=== PATIENT | female | born 1950 | race Caucasian/White ===

== ENCOUNTER 2022-04-13 06:41 | Observation (INO) ==
--- NOTE | 2022-02-27 09:20 | PAT Medication Instructions ---
Medication Instructions Date of Service February 27, 2022 Home Medications Lactobacillus rhamnosus GG 10 billion cell capsule (Culturelle) 1 cap PO DAILY aspirin 81 mg chewable tablet (Caitlin Chewable Low Dose Aspirin) 81 mg PO QAM atorvastatin 10 mg tablet 10 mg PO QDD calcium carbonate 600 mg-vitamin D3 12.5 mcg (500 unit) capsule (Calcium 600 with Vitamin D3) 1 cap PO BID cetirizine 10 mg capsule (Zyrtec) 10 mg PO HS colestipol 1 gram tablet 1 g PO UNKNOWN glimepiride 2 mg tablet 2 mg PO QAM guaifenesin 600 mg tablet, extended release 12 hr (Mucinex) 600 mg PO BID hydrochlorothiazide 25 mg tablet 25 mg PO QAM melatonin 5 mg capsule 5 mg PO HS PRN alendronate 70 mg tablet (Fosamax) 70 mg PO WK turmeric 400 mg capsule 500 mg PO QAM Continue as directed atorvastatin 10 mg tablet 10 mg PO QDD alendronate 70 mg tablet (Fosamax) 70 mg PO WK (not day of surgery) STOP taking 2 weeks before surgery turmeric 400 mg capsule 500 mg PO QAM STOP taking 48 hours before surgery colestipol 1 gram tablet 1 g PO UNKNOWN DO NOT take the morning of surgery Lactobacillus rhamnosus GG 10 billion cell capsule (Culturelle) 1 cap PO DAILY calcium carbonate 600 mg-vitamin D3 12.5 mcg (500 unit) capsule (Calcium 600 with Vitamin D3) 1 cap PO BID glimepiride 2 mg tablet 2 mg PO QAM guaifenesin 600 mg tablet, extended release 12 hr (Mucinex) 600 mg PO BID hydrochlorothiazide 25 mg tablet 25 mg PO QAM Take morning of surgery With a small sip of water, OTHERWISE NOTHING TO EAT OR DRINK AFTER MIDNIGHT: aspirin 81 mg chewable tablet (Caitlin Chewable Low Dose Aspirin) 81 mg PO QAM (unless directed otherwise by surgeon) Take evening before surgery calcium carbonate 600 mg-vitamin D3 12.5 mcg (500 unit) capsule (Calcium 600 with Vitamin D3) 1 cap PO BID cetirizine 10 mg capsule (Zyrtec) 10 mg PO HS guaifenesin 600 mg tablet, extended release 12 hr (Mucinex) 600 mg PO BID melatonin 5 mg capsule 5 mg PO HS PRN(if needed) Other Notes If you have any questions please call us at [phone] or [phone] or [phone] or [phone]
--- NOTE | 2022-03-07 10:26 | Anesthesiology Consultation ---
Date of Service March 07, 2022 Assessment & Plan (1) Encounter for pre-operative examination: - will attempt to obtain any spine available imaging from [facility] - check BSG am DOS. - Outpatient joint assessment: Patient is currently scheduled for inpatient pathway. If re-evaluated pending system levels during current pandemic/surgeon requests outpatient pathway, patient is acceptable candidate for outpatient joint program from anesthesia standpoint pending surgeon's office assessment of pt motivation/support/completion of same day joint program preop requirements. Chart Review Chart Review: Pending: Refer to Additional Notes / Consult section and Patient seen in Pre Admission Testing History Surgery Operation Date: 04/13/22 07:00 Proposed Procedures p Right Total Knee Arthroplasty - Miguel Bah DO Height/Weight Height: 5 ft 3 in Weight: 76.2 kg Allergies Allergy/AdvReac Type Severity Reaction Status Date / Time No Known Allergies Allergy Verified 02/21/22 13:40 Medications Home Medications Medication Instructions Recorded Confirmed Last Taken Lactobacillus rhamnosus GG 10 1 cap PO DAILY 08/01/21 02/21/22 Unknown billion cell capsule (Culturelle) aspirin 81 mg chewable tablet 81 mg PO QAM 08/01/21 02/21/22 Unknown (Caitlin Chewable Low Dose Aspirin) atorvastatin 10 mg tablet 10 mg PO QDD 08/01/21 02/21/22 Unknown calcium carbonate 600 mg-vitamin 1 cap PO BID 08/01/21 02/21/22 Unknown D3 12.5 mcg (500 unit) capsule (Calcium 600 with Vitamin D3) cetirizine 10 mg capsule (Zyrtec) 10 mg PO HS 08/01/21 02/21/22 Unknown colestipol 1 gram tablet 1 g PO UNKNOWN 08/01/21 02/21/22 Unknown glimepiride 2 mg tablet 2 mg PO QAM 08/01/21 02/21/22 Unknown guaifenesin 600 mg tablet, 600 mg PO BID 08/01/21 02/21/22 Unknown extended release 12 hr (Mucinex) hydrochlorothiazide 25 mg tablet 25 mg PO QAM 08/01/21 02/21/22 Unknown melatonin 5 mg capsule 5 mg PO HS PRN Sleep 08/01/21 02/21/22 Unknown alendronate 70 mg tablet (Fosamax) 70 mg PO WK 02/21/22 02/21/22 Unknown turmeric 400 mg capsule 500 mg PO QAM 02/21/22 02/21/22 Unknown Past Medical History Medical History (Updated 03/07/22 @ 10:29 by Cassandra Suarez PA-C) Age related osteoporosis COVID-19 + TEST 02/20/22, [facility] Cyst ON SPINE/TOLD NOTHING TO WORRY ABOUT - NO NEED TO REGULARLY MONITOR UNLESS IT PRESENTS A PROBLEM NO CURRENT PROBLEM WITH Diabetes NIDDM Fatty liver WEIGHT LOSS SINCE DX YRS AGO High cholesterol History of anesthesia reaction awareness during colonoscopies History of colon polyps BENIGN History of skin cancer legs, s/p excision Hypertension controlled, stable per pt Lymphocytic colitis MICROSCOPIC NO CURRENT FLARE UP - BUDESONIDE USE PRN IN THE HX/ NO ACTIVE RX FOR CURRENT Patient denies h/o stroke, seizures, heart attack, heart failure, blood clots or blood transfusions. Exercise / Class Metabolic Activity II 4-5 Yardwork/Stairs/Walk up hill (denies CP or SOB with 1 FOS) Past Family History Family History Mother Family history of blood clots Father Family history of lung cancer Family history of heart attack Brother Family history of heart attack Other Family history of colon cancer in father Heart disease Stroke Past Surgical History Surgical History (Updated 03/07/22 @ 10:30 by Cassandra Suarez PA-C) History of colonoscopy History of endoscopy QUESTIONABLE/PT NOT SURE History of lumpectomy of right breast benign Hx of appendectomy Past Anesthesia History No Family Hx of Anesthesia Complications and Other (awareness during colonoscopies) History of PONV No Hx of PONV and No Hx of Motion Sickness Social History Smoking Status: Former smoker tobacco type: cigarettes Do You Dip or Chew Tobacco: No Smoking End Date: 50 + YR AGO Hx Alcohol Use: No Hx Substance Use: No substance use type: does not use Review of Systems Snoring, denies witnessed apneas. Patient denies chest pain, shortness of breath, dyspnea on exertion, reflux, fever, chills, cough, wheezing, or palpitations. Physical Exam Vital Signs Vitals BP 119/80 P 77 SP02 98% on RA RESP 18 Physical Full cervical extension range of motion without pain TMD 3.5 finger breadths Mallampati Score 1 Dentition: intact, one implant-right pt unsure of location, several caps/crowns; denies chipped, loose teeth or bridge Lungs: normal respiratory effort. Clear throughout to auscultation, no adventitious breath sounds Cardiac: regular rate and rhythm, no murmurs noted Carotid arteries: negative bruit bilat Lab Results Anesthesia Preop Results Results Anesthesia Widget: WBC 6.16 K/ul (4.8-10.8) 03/07/22 Hgb 13.1 g/dl (12.0-16.0) 03/07/22 Hct 38.7 % (34.1-44.9) 03/07/22 Plt 264 K/uL (130-400) 03/07/22 Na 139 mmol/L (136-145) 03/07/22 K 3.7 mmol/L (3.5-5.1) 03/07/22 Cl 104 mmol/L (98-107) 03/07/22 CO2 29 mmol/L (21-32) 03/07/22 BUN 9 mg/dl (6-23) 03/07/22 Creat 0.54 mg/dl (0.6-1.2) L 03/07/22 Glucose Level 113 mg/dl (70-99(Fasting)) H 03/07/22 PT 10.6 Seconds (9.0-12.0) 03/07/22 PTT 42.7 Seconds (21.0-31.0) H 03/07/22 INR 1.0 (0.9-1.1) 03/07/22 HA1c 6.9 % (4.5-5.6) H 03/07/22 Blood Type A Positive 03/07/22 Antibody Screen NEGATIVE 03/07/22 Testing Electrocardiogram Date: 03/07/22 NSR, rate 75 bpm Chest X-Ray Date: 03/07/22 Cardiomediastinal and hilar silhouettes are within normal limits. Mild hyperinflation. No pneumothorax, pleural effusion, airspace consolidation or overt pulmonary edema. Bones of the chest appear grossly intact. There is mild convex left curvature of the lower thoracic spine. IMPRESSION: No acute process. COVID-19 Risk Screen Screening Information COVID-19 Screen Date: 03/07/22 Exposure 21 Days Family/Household +COVID Last 21 Days: No Exposure 10 Days Any COVID Exposure Last 10 Days: No Symptoms Last 10 Days Experienced COVID Sx Last 10 Days: No + COVID 0-90 Days COVID + in Last 0-90 Days: Yes + COVID Test 0-10 Day: No + COVID Test 11-90 Day: Yes
--- NOTE | 2022-04-12 06:53 | History & Physical Report ---
Date of Service April 12, 2022 Assessment & Plan (1) Osteoarthritis of right knee: We will proceed with a right total knee arthroplasty. Postoperatively she will be started on aspirin for DVT prophylaxis and kept overnight for postoperative medical management. She plans to use energy physical therapy upon discharge. History of Present Illness Chief Complaint: Osteoarthritis of the right knee. Primary Care Provider: Lilly Gage PA-C Kerri is a pleasant 71-year-old female who has been dealing with chronic osteoarthritis of the right knee. I have given her multiple injections. The injections did help some. Unfortunately, she is really struggling with her knee. She is having trouble doing exercises. She has trouble walking long distances or going up and downstairs. After failing conservative treatment, she has elected to proceed with a right total knee arthroplasty. Allergies Allergy/AdvReac Type Severity Reaction Status Date / Time No Known Allergies Allergy Verified 02/21/22 13:40 Home Medications Medication Instructions Recorded Confirmed Type Lactobacillus rhamnosus GG 10 1 cap PO DAILY 08/01/21 02/21/22 History billion cell capsule (Culturelle) aspirin 81 mg chewable tablet 81 mg PO QAM 08/01/21 02/21/22 History (Caitlin Chewable Low Dose Aspirin) atorvastatin 10 mg tablet 10 mg PO QDD 08/01/21 02/21/22 History calcium carbonate 600 mg-vitamin 1 cap PO BID 08/01/21 02/21/22 History D3 12.5 mcg (500 unit) capsule (Calcium 600 with Vitamin D3) cetirizine 10 mg capsule (Zyrtec) 10 mg PO HS 08/01/21 02/21/22 History colestipol 1 gram tablet 1 g PO UNKNOWN 08/01/21 02/21/22 History glimepiride 2 mg tablet 2 mg PO QAM 08/01/21 02/21/22 History guaifenesin 600 mg tablet, 600 mg PO BID 08/01/21 02/21/22 History extended release 12 hr (Mucinex) hydrochlorothiazide 25 mg tablet 25 mg PO QAM 08/01/21 02/21/22 History melatonin 5 mg capsule 5 mg PO HS PRN Sleep 08/01/21 02/21/22 History alendronate 70 mg tablet (Fosamax) 70 mg PO WK 02/21/22 02/21/22 History turmeric 400 mg capsule 500 mg PO QAM 02/21/22 02/21/22 History budesonide 3 mg 3 mg PO DAILY 03/29/22 History capsule,delayed,extended release Past Med/Surg History Medical History Age related osteoporosis COVID-19 + TEST 02/20/22, [facility] Cyst MRI thoracic spine 12/24/19: 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, T10 and T12 vertebral bodies; no further management needed per provider per pt Diabetes NIDDM Fatty liver WEIGHT LOSS SINCE DX YRS AGO High cholesterol History of anesthesia reaction awareness during colonoscopies History of colon polyps BENIGN History of skin cancer legs, s/p excision Hypertension controlled, stable per pt Lymphocytic colitis MICROSCOPIC NO CURRENT FLARE UP - BUDESONIDE USE PRN IN THE HX/ NO ACTIVE RX FOR CURRENT Surgical History History of colonoscopy History of endoscopy QUESTIONABLE/PT NOT SURE History of lumpectomy of right breast benign Hx of appendectomy Family History Mother Family history of blood clots Father Family history of lung cancer Family history of heart attack Brother Family history of heart attack Other Family history of colon cancer in father Heart disease Stroke Social History Smoking Status: Never smoker Smoking End Date: 50 + YR AGO; Do You Dip or Chew Tobacco: No; Hx Alcohol Use: No Hx Substance Use: No Preferred Language: Maltese Communication Ability: Effective Welt Sewer Required: No Beliefs That Will Affect Care: None and Islam Islam Beliefs: CHURCH Current Living Situation: Spouse Other Information That Helps Us Care for You: No Feels Safe at Home: Yes Assistive Devices: Glasses Review of Systems All systems reviewed & are unremarkable except as noted in HPI & below. Physical Exam On physical examination the right knee, she has a slight varus deformity. She has tenderness palpation of the distal medial femoral condyle and over the medial joint line.. Constitutional WD/WN, vitals as above Eyes PERRL, conjunctivae normal, anicteric sclerae ENMT external ear and nose normal, oropharynx normal Neck trachea midline, no thyromegaly Respiratory normal respiratory effort, lungs clear to auscultation Cardiovascular RRR, no murmur, no edema Gastrointestinal (Abdomen) normal bowel sounds, soft, nontender, no hepatosplenomegaly Skin no rashes, warm and dry Psychiatric A+Ox3, euthymic affect Results & Data Results & Data Laboratory Results . Diagnostic Findings X-rays of the right knee show advanced osteoarthritis with joint space narrowing, osteophyte formation, and [id number] articulation. PG Care Time/CCT Total # of Minutes Spent Total Time Spent with Patient: Total time spent is greater than 50% in coordination of care (as documented) at patient's floor/unit and/or counseling patient: Coding Level of Care Code None Diagnoses Osteoarthritis of right knee M17.11
[~2022-04-13 06:41] MED LIST: ACETAMINOPHEN 500 MG TAB PO SCH; BUPIVACAINE 0.5 % 5 MG/1 ML PF 10ML VIAL ONE; FAMOTIDINE 20 MG TAB PO SCH; GABAPENTIN 300 MG CAP PO SCH; LR 500ML BOLUS, THEN 15ML/HR IV SCH; LR 60ML/HR IV SCH; ORTHO JOINT MIX INFIL SCH; ROPIVACAINE 0.5% 5 MG/ML 30 ML VIAL ONE; TRANEXAMIC ACID 1,000 MG **IV Intra-op IV SCH; TRANEXAMIC ACID 1,000 MG **IV Pre-op IV SCH; ceFAZolin 2000MG 2,000 MG/15 ML SYR IV SCH; dexAMETHasone 4 MG TAB PO SCH
--- NOTE | 2022-04-13 06:57 | History & Physical Bridge Note ---
Date of Service April 13, 2022 History & Physical Bridge Note I have examined the patient, reviewed the History & Physical and in the interval since the performance of the History & Physical I have noted the following changes of clinical significance: no changes noted
[2022-04-13] MEDS ORDERED: ONDANSETRON INJ 2 MG/ML 2 ML VIAL ONE (07:48)
[2022-04-13] MEDS ORDERED: MIDAZOLAM HCL 1 MG/ML 2ML VIAL ONE ×2 (07:48→08:03)
[2022-04-13] MEDS ORDERED: PROPOFOL IV EMULSION 10 MG/ML 20 ML VIAL IV ONE (07:48)
[2022-04-13] MEDS ORDERED: fentaNYL citrate 100 MCG/2 ML VIAL ONE (07:48)
[2022-04-13] MEDS ORDERED: ePHEDrine sulfate 50 MG/ML AMP IV PRN (08:01)
[2022-04-13] MEDS ORDERED: ONDANSETRON INJ 2 MG/ML 2 ML VIAL IV PRN ×2 (08:01→13:05)
[2022-04-13] MEDS ORDERED: fentaNYL citrate 100 MCG/2 ML VIAL IV PRN (08:01)
[2022-04-13] MEDS ORDERED: ATROPINE SULFATE 0.1 MG/ML 10ML SYR IV PRN (08:01)
[2022-04-13] MEDS ORDERED: ORTHO JOINT ANESTHETIC ONE (08:52)
--- NOTE | 2022-04-13 10:19 | Operative Report ---
PG Post Operative Report Pre & Post Diagnosis Operation Date: 04/13/22 09:20 Pre-Op Diagnosis: Right Knee DJD Post-Op Diagnosis: Right Knee DJD I identified the patient and participated in the time-out.: Yes Procedure Operation Date: 04/13/22 09:20 Actual Procedures p Right Total Knee Arthroplasty(Right) - Miguel Bah DO Surgeon Miguel Bah DO Snack Steward Miguel Moreno PA-C Estimated Blood Loss 20 Findings Consistent with Post-Op Diagnosis Specimens Right femoral and tibial bone Description of Procedure Implants used: I used a Elsa Persona total knee arthroplasty system with a size 4 standard femur, D tibia, 28 oval 13 medial congruent patella, and a size polyethylene bearing. All components were cemented in place with Biomet cement. Kerri arrived [facility] for the above procedure. She was seen in the preoperative holding area and the operative extremity was identified and signed. She was given a preoperative antibiotic, TXA, a spinal anesthetic and an adductor nerve block. She was taken back to the operating room and laid on the table in supine position. She was given basic sedation. The operative knee was then prepped and draped in sterile fashion. A timeout was done, and the patient and the operative extremity was properly identified. A midline incision was made directly over the patella. Dissection was taken down to the extensor mechanism. A subvastus arthrotomy was used. The medial retinaculum was released and the fat pad was mostly excised. The knee was flexed and the ACL, PCL, and meniscus were removed. A drill was sent down the center of the femoral canal followed by an intramedullary pam. Off that pam a distal femoral cutting block was placed. 9 mm was resected off the distal femur at 5 of valgus. A posterior referencing AP sizing guide was then placed on the distal femur. The femur measured to be a size 4. 2 drill holes were placed in 3 of external rotation. A 4-in-1 cutting block was then impacted into place. Anterior, posterior, and chamfer cuts were then made. The proximal tibia was then exposed. An external tibial alignment guide was placed. A tibial cut guide was then anchored in place and the proximal tibia was then resected. The posterior aspect of the knee was then opened up and any additional meniscus fragments and osteophytes were removed. The tibia measured to be a size D. The tibial plate was then placed in the appropriate rotation and the tibia was drilled and punched. Trial components were then placed. I used a size 13 medial congruent polyethylene insert. The knee was brought through a full range of motion and felt to be stable. The peg holes for the femoral component were then drilled. The patella was then everted and 9 mm was resected off the posterior aspect of the patella. The patella measured to be a size 28 oval. 3 peg holes were then drilled. A trial patella was placed. The knee was once again brought through a full range of motion and felt to be stable. Trial components were then removed. The surrounding soft tissues were injected with 100 cc of an orthopedic pain control cocktail. All components were then cemented into place with Biomet cement. The final polyethylene insert was then snapped into place. Once cement was dry the tourniquet was deflated. Hem ostasis was obtained. A dilute betadyne lavage was then done for 3 minutes. The joint was then irrigated with normal saline solution. The subvastus arthrotomy was then closed with #1 Vicryl suture. The skin was closed with 2-0 Vicryl, 3-0V lock suture, and denice. A soft compressive dressing was placed. She was then transferred to a hospital bed and taken to the postanesthesia care unit in stable condition. She tolerated the procedure well. Miguel Moreno PA-C, was present for the entire procedure. He was critical for patient positioning, prepping, draping, retraction exposure, wound closure and application of sterile dressing. I attest to the content of the Intraoperative Record and any orders documented therein. Any exceptions are noted below.
[2022-04-13] MEDS ORDERED: PHENYLEPHRINE 100MCG/ML 5ML SYR ONE (10:27)
--- NOTE | 2022-04-13 11:14 | XRay Report ---
XR knee RT 1 or 2V routine CLINICAL HISTORY: Postoperative evaluation. COMPARISON: Knee radiograph August 01, 2021. FINDINGS: Alignment of the total right knee arthroplasty is anatomic. There is no periprosthetic fra cture or unexpected radiopaque foreign body. There are skin denice. IMPRESSION: Expected findings following total right knee arthroplasty. ACT 112: Negative or not required by law. Electronically signed by: Zhao Rolon M.D. 04/13/2022 11:12 AM
--- NOTE | 2022-04-13 12:31 | Anesthesiology Progress Note ---
Date of Service April 13, 2022 Anesthesia Post Procedure Vital Signs Vital Signs: Temp Pulse Pulse Resp BP Pulse Ox O2 Del Method 04/13/22 12:20 97.5 F L 71 20 100/56 L 97 Nasal Cannula 04/13/22 12:10 66 16 94/48 L 97 Nasal Cannula 04/13/22 12:00 78 19 106/50 L 98 Nasal Cannula 04/13/22 11:50 69 14 97/49 L 98 Nasal Cannula 04/13/22 11:40 63 14 100/51 L 98 Nasal Cannula 04/13/22 11:30 72 16 92/47 L 97 Nasal Cannula 04/13/22 11:20 97.7 F 68 18 101/50 L 97 Nasal Cannula 04/13/22 11:10 68 16 105/54 L 95 Room Air 04/13/22 11:00 73 16 99/57 L 93 Room Air 04/13/22 10:50 71 12 102/57 L 99 Oxymask 04/13/22 10:41 97.5 F L 82 12 99/58 L 99 Oxymask 04/13/22 07:17 97.9 F 79 20 152/89 H 97 Room Air O2 Flow Rate 04/13/22 12:20 2 04/13/22 12:10 2 04/13/22 12:00 2 04/13/22 11:50 2 04/13/22 11:40 2 04/13/22 11:30 2 04/13/22 11:20 2 04/13/22 11:10 04/13/22 11:00 04/13/22 10:50 3 04/13/22 10:41 6 04/13/22 07:17 Transfer of Care Handoff Completed per policy Notes Mental Status: alert / awake / arousable and participated in evaluation Patient Amnestic to Procedure: Yes Nausea / Vomiting: adequately controlled Pain: adequately controlled Airway Patency, RR, SpO2: stable & adequate BP & HR: stable & adequate Hydration State: stable & adequate Neuraxial Anesthesia: was administered and sensory block is resolving Anesthetic Complications: no major complications apparent and Pt Satisfied with anesthetic care
[2022-04-13] MEDS ORDERED: bisacodyL 10 MG SUPP PR PRN (13:05)
[2022-04-13] MEDS ORDERED: NALOXONE HCL 0.4 MG/1 ML VIAL/CARP IV PRN (13:05)
[2022-04-13] MEDS ORDERED: PHARMACY GLYCEMIC MGMT CONSULT PRN (13:05)
[2022-04-13] MEDS ORDERED: HYDROmorphone INJ 0.5 MG/0.5 ML SYR IV PRN (13:05)
[2022-04-13] MEDS ORDERED: MAGNESIUM HYDROXIDE SUSP 30 ML UDC PO PRN (13:05)
[2022-04-13] MEDS ORDERED: oxyCODONE HCL IR 5 MG TAB (IMMEDIATE RELEASE) PO PRN (13:05)
[2022-04-13] MEDS ORDERED: METOCLOPRAMIDE HCL INJ 5 MG/ML 2 ML VIAL IV PRN (13:05)
[2022-04-13] MEDS ORDERED: MELATONIN 3 MG TAB PO PRN (13:11)
--- NOTE | 2022-04-13 13:59 | Pharmacy Report ---
Pharmacy Glycemic Short Note 2 - Date of Service April 13, 2022 - Glycemic Short BSG Results (Last 24 hours): 04/13/22 04/13/22 07:17 10:47 POC Glucose 150 H 173 H OUTPATIENT ANTIDIABETIC REGIMEN: * glimepiride 2 mg Qam * A1c 6.9% ASSESSMENT: * 72 year old female now s/p R TKA, POD 0 - pharmacy consulted for glycemic control postop. Patient received PO dexamethasone preop - awaiting postop BSG value. BSGs this AM 150-173 mg/dL. Diet started postop * Will start novolog now with stress of 2/3 dosing. Will add on small scale for basal insulin at dinner if BSGs >180 PLAN FOR INPATIENT GLYCEMIC CONTROL: * Hold outpatient oral diabetes medications * Basal insulin * Lantus 0-10 units at dinner if BSG >180 mg/dL * Bolus insulin * NovoLog per scale ACHS or Q6hrs while NPO * Goal Range: Low 110 mg/dL - High 140 mg/dL * Correction Factor: 25 mg/dL/unit * Nutritional / Prandial insulin per carb ratio of 1 unit per 9 grams CHO consumed
[2022-04-13] MEDS ORDERED: CARBOHYDRATES FOR HYPOGLYCEMIA PO PRN (14:15)
[2022-04-13] MEDS ORDERED: GLUCAGON FOR INJ 1 MG VIAL IM PRN (14:15)
[2022-04-13] MEDS ORDERED: GLUCOSE 10 TAB/TUBE PO PRN (14:15)
[2022-04-13] MEDS ORDERED: DEXTROSE 50% 50 ML SYRINGE IV PRN (14:15)
[2022-04-13] MEDS ORDERED: GLUCOSE 40% GEL 15 GM TUBE PO PRN (14:15)
[2022-04-13] MEDS: SODIUM CHLORIDE 0.9% 1000ML 1,000 ML IV SCH (14:29)
[2022-04-13] MEDS: KETOROLAC TROMETHAMINE 15 MG/ML VIAL IV SCH ×2 (14:30→20:26)
[2022-04-13] MEDS: ACETAMINOPHEN 500 MG TAB PO SCH ×2 (14:30→21:05)
[2022-04-13] MEDS: INSULIN ASPART PER UNIT SC SCH ×3 (14:37→21:05)
[2022-04-13] MEDS ORDERED: PNEUMOCOCCAL POLYSACCHARIDES 25 MCG/0.5 ML VIAL/SYR IM ONE (14:45)
[2022-04-13] MEDS ORDERED: ATORVASTATIN 10 MG TAB PO SCH (16:30)
[2022-04-13] MEDS: ceFAZolin 2000MG 2,000 MG/15 ML SYR IV SCH (17:18)
[2022-04-13] MEDS ORDERED: LANTUS PER UNIT CHARGE SQ SCH (17:30)
[2022-04-13] MEDS: ASPIRIN 81 MG ECTAB PO SCH (20:28)
[2022-04-13] MEDS: DOCUSATE SODIUM 100 MG CAP PO SCH (20:29)
[2022-04-13] MEDS ORDERED: SENNA 8.6 MG TAB PO SCH (21:00)
[2022-04-13] MEDS ORDERED: CETIRIZINE HCL 10 MG TABLET PO SCH (21:00)
[2022-04-14] MEDS ORDERED: INSULIN ASPART PER UNIT SC SCH
[2022-04-14] MEDS: SODIUM CHLORIDE 0.9% 1000ML 1,000 ML IV SCH (00:13)
[2022-04-14] MEDS: ceFAZolin 2000MG 2,000 MG/15 ML SYR IV SCH (00:19)
[2022-04-14] MEDS: KETOROLAC TROMETHAMINE 15 MG/ML VIAL IV SCH ×2 (01:12→08:48)
[2022-04-14] MEDS: ACETAMINOPHEN 500 MG TAB PO SCH (06:05)
--- NOTE | 2022-04-14 08:10 | Discharge Summary ---
Date of Service April 14, 2022 Admission HPI (Per Admitting) Kerri is a pleasant 71-year-old female who has been dealing with chronic osteoarthritis of the right knee. I have given her multiple injections. The injections did help some. Unfortunately, she is really struggling with her knee. She is having trouble doing exercises. She has trouble walking long distances or going up and downstairs. After failing conservative treatment, she has elected to proceed with a right total knee arthroplasty. Admission Exam (Per Admitting) On physical examination the right knee, she has a slight varus deformity. She has tenderness palpation of the distal medial femoral condyle and over the medial joint line.. Principal Diagnosis Same as "Discharge Diagnosis" noted below under Discharge Instructions. Discharge Exam On physical examination the right knee, the dressing is clean and dry. Her leg is out full extension. She has active dorsiflexion plantarflexion of her right ankle. Sensation is intact throughout.. Discharge Data Procedures Performed Operation Date: 04/13/22 09:20 Actual Procedures p Right Total Knee Arthroplasty(Right) - Miguel Bah DO Ordered Studies 04/13/22 05:00 US - OR guided needle placemen Routine Hospital Course (1) Status post right knee replacement: On April 13, 2022 Kerri arrived at [facility] and underwent a right knee replacement without complication. She had a spinal anesthetic. Postoperatively she was started on aspirin for DVT prophylaxis and transferred to the general orthopedic floors. Her hospital course was uneventful. On postop day #1, her vital signs were stable and her pain was well controlled. She was able to participate well with physical therapy doing ambulation and range of motion exercises. She was then discharged home. She will follow-up with orthopedics in 2 weeks. PG Care Time/CCT Total # of Minutes Spent Total Time Spent with Patient: Total time spent is greater than 50% in coordination of care (as documented) at patient's floor/unit and/or counseling patient: Discharge Plan Discharge Items Patient Disposition: Home - Home Health Services Reason For Visit: Right Knee DJD Discharge Diagnosis: Right knee replacement Activity: Per Instructions section Non-emergency contact: Surgeon Call non-emergency contact if: your wound has increased redness and your wound has increased drainage Follow-up/Referrals: Lilly Gage PA-C [Primary Care Provider] - Diet: Regular Addtl Attending Provider Instructions: Activity and Therapy Recommendations: * If you are using [facility] then therapy will be provided at your home until they feel you have accomplished all of your goals. * If you are using [facility] then Physical Therapy will be provided until they feel you are ready to start Outpatient Physical Therapy. * If you are not using home therapy then Outpatient Physical Therapy should start about 3-5 days from your day of surgery. Therapy will last about 6-10 weeks * It is important not to put a pillow under your knee when you are relaxing or sleeping. It is just as important to make sure you are getting your knee perfectly straight as it is to regain your knee bend. * You were shown a series of exercises in the hospital. Do these exercises three times each day including the exercises you were shown in physical therapy. * Get up and walk several times each day. For the first four weeks, try not to stand or walk for more than one hour at a time. If you do stand or walk for more than one hour, you will not hurt anything, but your leg will likely sw ell. * As you feel comfortable, you may change from the walker or crutches to a cane and then to independent walking. Medications: * Narcotic You will likely be sent home from the hospital with a prescription for the narcotic pain medication that worked best throughout your stay. * Aspirin Most patients will be required to take Aspirin 81mg twice a day for 6 weeks after surgery. This is obtained [id number] and a prescription is not necessary. * Other medications may be prescribed for specific circumstances. If you have any questions, please call the office at . * Resume previous home medications unless otherwise instructed TEDs/Elastic Stockings: The white elastic stockings help limit swelling and prevent blood clots from forming in your legs.~ The more you wear them, the more they work. Wear them for six weeks. Dressing Care: The dressing can be changed after physical therapy on postop day #1. Daily dry dressing changes for a few days, especially if the incision is still draining some. If the incision is not draining then you may leave the denice open to air. If there is a little bit of drainage or if the denice are getting stuck on your clothing then cover the incision with a dry dressing. The denice will be removed at your 2 week follow-up appointment. Showering: You may shower 5 days from the day of surgery as long as the incision is no longer draining. You may shower with the denice exposed. Let soapy water run over the denice and pat them dry. Do not scrub or soak the incision. Things To Watch For: * Drainage from the incision site that occurs more than one week after your surgery. * Increased redness at the incision site. * Fever above 102 degrees Fahrenheit. * Unusual chest pain or shortness of breath. * Call [facility] at with any of the above problems Follow-Up Visit: Follow-up with Dr. Bah's PA (Miguel Moreno) 2-3 weeks after your day of surgery. He will remove your denice and answer any questions. If you have any additional questions or concerns, Dr Bah is usually in the office at the same time and will be available An appointment was probably scheduled when you signed-up for surgery in the office. If you have any questions call Office Instructions: More detailed instructions as well as Frequently Asked Questions were provided in a folder by our office when you signed-up for surgery. Please review these instructions when you get home. If you have any further questions or concerns, please feel free to call the office at [phone] Pending Studies at Discharge: No Stand-Alone Forms: My [facility], Smoking Cessation Medications and DC Order Prescriptions: New oxycodone-acetaminophen 5-325 mg tablet 1 tab PO Q6H PRN (Reason: pain) Qty: 30 0RF Continued budesonide 3 mg capsule,delayed,extend.release 3 mg PO DAILY Rx Instructions: titrating down until 04-18-22 atorvastatin [Lipitor] 10 mg tablet 10 mg PO QDD calcium carbonate-vitamin D3 [Calcium 600 with Vitamin D3] 600 mg-12.5 mcg (500 unit) capsule 1 cap PO BID Label Comments: 600/400 Culturelle 10 billion cell capsule 1 cap PO DAILY glimepiride 2 mg tablet 2 mg PO QAM hydrochlorothiazide 25 mg tablet 25 mg PO QAM melatonin 5 mg capsule 5 mg PO HS PRN (Reason: Sleep) Label Comments: NOT THAT OFTEN guaifenesin [Mucinex] 600 mg tablet extended release 12hr 600 mg PO BID Zyrtec 10 mg capsule 10 mg PO HS alendronate [Fosamax] 70 mg Tablet 70 mg PO WK Label Comments: EVERY SATURDAY turmeric 400 mg Capsule 500 mg PO QAM Changed aspirin [Caitlin Chewable Aspirin] 81 mg tablet,chewable 81 mg PO BID 42 Days Qty: 0 0RF Discharge Orders: Discharge Order (Routine); Ordered 04/14/22 Ordered By: Miguel Bah Admission Data Admit Date/Time: 04/13/22 10:48 Attending Provider: Miguel Bah Admit Provider: Miguel Bah Primary Care Provider: Lilly Gage
--- NOTE | 2022-04-14 08:10 | Orthopedic Progress Note ---
Date of Service April 14, 2022 Assessment & Plan (1) Status post right knee replacement: Overall she is doing very well. She is not having much pain in the right knee. She will be seen by physical therapy today for ambulation and range of motion exercises. She is on aspirin for DVT prophylaxis. She can be discharged home later today. She will follow-up with orthopedics in 2 weeks. Re Irizarry was seen and examined at bedside this morning. Overall she is doing very well. She is not having much pain in the right knee. She has been up and ambulating to the bathroom. She has no complaints.. Review of Systems All systems reviewed & are unremarkable except as noted in HPI & below. Physical Exam On physical examination the right knee, the dressing is clean and dry. Her leg is out full extension. She has active dorsiflexion plantarflexion of her right ankle. Sensation is intact throughout.. Results & Data Results & Data Laboratory Results . Diagnostic Findings X-rays of the right knee show the prosthesis to be in anatomic alignment without any evidence of fracture, desiccation, or loosening. PG Care Time/CCT Total # of Minutes Spent Total Time Spent with Patient: Total time spent is greater than 50% in coordination of care (as documented) at patient's floor/unit and/or counseling patient: Coding Level of Care Code 23496 Post Operative Follow-Up Diagnoses Status post right knee replacement Z96.651
[2022-04-14] MEDS: ASPIRIN 81 MG ECTAB PO SCH (08:46)
[2022-04-14] MEDS: DOCUSATE SODIUM 100 MG CAP PO SCH (08:47)
[2022-04-14] MEDS: INSULIN ASPART PER UNIT SC SCH (08:54)
[2022-04-14] MEDS ORDERED: hydroCHLOROthiazide 25 MG TAB PO SCH (09:00)
[2022-04-14] MEDS ORDERED: ADVANCED PROBIOTIC 1250 MG CAPSULE PO SCH (09:00)
[2022-04-14] MEDS ORDERED: BUDESONIDE EC 3 MG CAP PO SCH (09:00)
[2022-04-14] MEDS ORDERED: MULTIVITAMIN TAB PO SCH (09:00)
[2022-04-15] MEDS ORDERED: ALENDRONATE SODIUM 70 MG TAB PO SCH (06:30)
== END 2022-04-14 11:35 | disposition home or self-care (01) ==
LOC: ASU 06:41 → 3E 06:41